=== PATIENT | female | born 1945 | race Caucasian/White ===

== ENCOUNTER 2022-01-12 14:05 | Inpatient (IN) | payer MEDICARE, BC ==
[~2022-01-12] VITALS: Ht 149.9 cm; Wt 57.6 kg
--- NOTE | 2022-01-12 14:05 | NUR ---
Dr Thomas at the bedside for MSE.
[2022-01-12] MEDS ORDERED: CARB200T PO (14:42)
[2022-01-12] MEDS ORDERED: ATEN50TA PO (14:42)
[2022-01-12] MEDS ORDERED: TRAM50TA2 PO (14:42)
[2022-01-12] MEDS ORDERED: VERA240C2 PO (14:42)
[2022-01-12] MEDS ORDERED: LIOT5TAB11 PO (14:42)
[2022-01-12] MEDS ORDERED: LEVO88TA5 PO (14:42)
[2022-01-12] MEDS ORDERED: MELO-107 PO (14:42)
--- NOTE | 2022-01-12 15:50 | NUR ---
Pt is medically cleared By Dr Conley, placed a call to [facility], and spoke to Bill SHEIKH. ETA 1 hour.
[2022-01-12 16:47] LABS: BILIRUBIN,TOTAL 0.3 mg/dL (0.2-1.0); CREATININE 0.8 mg/dL (0.6-1.3); POTASSIUM 4.1 mmol/L (3.5-5.1); TOTAL PROTEIN, SERUM 7.6 g/dL (6.4-8.2)
--- NOTE | 2022-01-12 18:08 | NUR ---
PT WAS EVALUATED BY CRISIS WATER TREATMENT PLANT ENGINEER DEANNA. PT WAS PLACED ON 51/50 HOLD DANGER TO HERSELF. REPORT WAS GIVEN TO MHU RN. PT WAS TRANSFERED TO ROOM 145C.
[2022-01-12] MEDS ORDERED: MAG HYDROX/AL HYDROX/SIMETH 30 ML LIQUID UDC PO PRN (18:45)
[2022-01-12] MEDS ORDERED: LORAZEPAM 0.5 MG TABLET PO PRN (18:45)
[2022-01-12] MEDS ORDERED: BLOOD SUGAR DIAGNOSTIC 1 EACH STRIP VI ONE (19:00)
[2022-01-12 20:07] VITALS: BP 132/72
[2022-01-12] MEDS: TEMAZEPAM 7.5 MG CAPSULE PO PRN (20:52)
--- NOTE | 2022-01-12 22:50 | NUR ---
ADMIT NOTE: Patient is a 76-year-old female admitted on a 5150 for Danger to self after she per hold attempted to commit suicide by overdosing on Sonata sleeping pills (approx. 15) stating she wanted to kill herself so that her was able to benefit from a life-insurance policy. Patient was transferred to [facility] from [facility]. Patient admitted under the Care of Dr. Cristobal, and Dr. Loaiza. Patient is unable to ambulate however she transfers to and from wheelchair. Patient Right's Handbook Provided. Advisement served. Plan of Care initiated. Monitor for safety, Q 15 minutes. Patient requested prn for pain 10/10 on her lower back and left knee. Administered as ordered, will endorse to a.m. shift to follow up for outcome.
[2022-01-13] MEDS: LEVOTHYROXINE SODIUM 88 MCG TABLET PO SCH (06:39)
[2022-01-13] MEDS: TRAMADOL HCL 50 MG TABLET PO PRN ×2 (06:47→13:50)
[2022-01-13 07:11] LABS: CREATININE 0.9 mg/dL (0.6-1.3); POTASSIUM 3.6 mmol/L (3.5-5.1)
[2022-01-13 07:12] LABS: HEMATOCRIT 40.9 % (31.2-41.9); MEAN CORPUSCULAR HEMOGLOBIN 32.5 uug (24.7-32.8); MEAN CORPUSCULAR VOLUME 94.5 fL (75.5-95.3); PLATELET COUNT (AUTO) 204 K/uL (179-408)
[2022-01-13 08:04] VITALS: BP 116/71
[2022-01-13] MEDS: ATENOLOL 50 MG TABLET PO SCH (08:41)
[2022-01-13] MEDS: MELOXICAM 7.5 MG TABLET PO SCH (08:41)
[2022-01-13] MEDS: LIOTHYRONINE SODIUM 5 MCG TABLET PO SCH (08:41)
[2022-01-13] MEDS ORDERED: CARBAMAZEPINE 200 MG TABLET PO SCH (09:00)
[2022-01-13] MEDS ORDERED: VERAPAMIL SR 120 MG TABLET.SA PO SCH (09:00)
[2022-01-13 16:02] VITALS: BP 157/72
[2022-01-13] MEDS: VERAPAMIL SR 120 MG TABLET.SA PO SCH (17:24)
[2022-01-13] MEDS: HYDROCODONE/APAP 5-325MG TABLET PO PRN (17:48)
--- NOTE | 2022-01-13 17:48 | NUR ---
GPS: Nursing Notes: Destructive Behavior To Self: Patient is awake and responding to her name, isolative and withdrawn in her room, no interactions with her peers, low energy level, depressed mood and anxious affect, stated "I am feeling better because my friend are calling me and they are going to help me financially..", encouraged to participate in therapeutic groups, but continue to be isolative, able to transfer from the w/c to the bed without assistance, unable to formulate a viable plan for self care, continue to monitor for safety, continue with treatment plan.
[2022-01-13] MEDS ORDERED: CARBAMAZEPINE XR 200 MG TAB.SR.12H PO SCH (21:00)
[2022-01-13] MEDS: ATORVASTATIN 20 MG TABLET PO SCH (21:17)
[2022-01-13] MEDS: CARBAMAZEPINE XR 100 MG TAB.SR.12H PO SCH (21:17)
[2022-01-13] MEDS: ACETAMINOPHEN 325 MG TABLET PO PRN (21:18)
[2022-01-13] MEDS: OLANZAPINE 2.5 MG TABLET PO SCH (21:18)
[2022-01-13] MEDS: TEMAZEPAM 7.5 MG CAPSULE PO PRN (21:18)
[2022-01-13 22:07] VITALS: BP 130/84
--- NOTE | 2022-01-14 05:48 | NUR ---
Received patient in a wheelchair in the marie. The patient is able to engage in a meaningful conversation with this policy writer typist and did make a contract for safety at that time. Later on, the patient requested a sleeping pill stating " I have insomnia". The patient continues to active SI . Total sleep hours are 4.00, on and off. Safety Stratiges are in place and frequent rounding done. The patient seems hopeful that her friends will help her upon discharge and supply support when needed.
[2022-01-14] MEDS: HYDROCODONE/APAP 5-325MG TABLET PO PRN ×3 (06:19→20:50)
[2022-01-14] MEDS: LEVOTHYROXINE SODIUM 88 MCG TABLET PO SCH (06:19)
[2022-01-14 07:30] VITALS: BP 124/56
[2022-01-14] MEDS: ATENOLOL 50 MG TABLET PO SCH (08:35)
[2022-01-14] MEDS: CARBAMAZEPINE XR 100 MG TAB.SR.12H PO SCH ×2 (08:35→20:49)
[2022-01-14] MEDS: MELOXICAM 7.5 MG TABLET PO SCH (08:35)
[2022-01-14] MEDS: LIOTHYRONINE SODIUM 5 MCG TABLET PO SCH (08:35)
[2022-01-14] MEDS: ENSURE ENLIVE (VAN) 240 ML LIQUID PO SCH (11:41)
[2022-01-14] MEDS: VERAPAMIL SR 120 MG TABLET.SA PO SCH (13:00)
--- NOTE | 2022-01-14 13:25 | NUR ---
GPS: Nursing Notes: Destructive Behavior To Self: Patient is awake and responding to her name, needs a lot of prompting to participate in therapeutic groups, in and out of group therapy, compliant with her medications, cooperative with nursing care, low energy level, depressed mood and anxious affect, A/Ox4, showered today, moving around on w/c, stated that her friends are going to help her and self financially, brighter affect, continue to monitor for safety, continue with treatment plan.
--- NOTE | 2022-01-14 14:04 | NUR ---
GPS: FILED AND FAXED 14 DAY HOLD [facility] TODAY FOR DANGER TO SELF AND GRAVE DISABILITY AND FAXED RECEIVED BY COURT. PT GIVEN A COPY.
[2022-01-14 15:28] VITALS: BP 127/54
--- NOTE | 2022-01-14 15:49 | NUR ---
MIROSLAVA Initial Discharge Note: Pt currently resides at [place] [phone] ([phone]). MIROSLAVA will continues to work with pt and MD to ensure a safe and proper discharge plan for the pt.
[2022-01-14 20:14] VITALS: BP 132/56
--- NOTE | 2022-01-14 20:30 | NUR ---
RECEIVED PATIENT IN HER ROOM SITTING IN HER BED. SHE IS NOTED A/O X 3 ABLE TO VERBALIZED HER FEELINGS. SHE IS WITHDRAWN AND ISOLATIVE. PATIENT ADMITS THAT SHE WANTED TO KILL HERSELF BECAUSE SHE DID NOT HAVE ENOUGH MONEY TO CONTINUE PAYING FOR NURSING HOMES FOR BOTH HER AND HER . BUT SINCE HER FRIEND CAME TO VISIT HER SHE IS NO LONGER SUICIDAL. PATIENT STATED, "MY FRIEND CAME TO VISIT ME TODAY AND SHE TOLD ME THAT SHE IS VERY RICH AND SHE IS WILLING TO PAY FOR MY CARE". PATIENT IS ABLE TO TRANSFER HERSELF WITH THE HELP OF A WHEELCHAIR. SHE REQUIRES SOME ASSISTANCE WITH ADLs. SHE IS REASSURED FOR HER SAFETY. SAFETY AND FALL PRECAUTIONS ARE IN PLACE. PATIENT'S V/S ARE STABLE, SHE IS IN NO DISTRESS. SHE WAS GIVEN PO FLUIDS AND SNACKS. WILL CONTINUE TO MONITOR.
[2022-01-14] MEDS: OLANZAPINE 2.5 MG TABLET PO SCH (20:49)
[2022-01-14] MEDS: ATORVASTATIN 20 MG TABLET PO SCH (20:49)
[2022-01-14] MEDS: TEMAZEPAM 7.5 MG CAPSULE PO PRN (21:59)
[2022-01-14] MEDS: MAGNESIUM HYDROXIDE 30 ML LIQUID UDC PO PRN (21:59)
[2022-01-15] MEDS: HYDROCODONE/APAP 5-325MG TABLET PO PRN ×2 (05:13→21:49)
[2022-01-15] MEDS: LEVOTHYROXINE SODIUM 88 MCG TABLET PO SCH (06:02)
[2022-01-15] MEDS: LIOTHYRONINE SODIUM 5 MCG TABLET PO SCH (06:03)
[2022-01-15 07:30] VITALS: BP 131/75
[2022-01-15] MEDS: ATENOLOL 50 MG TABLET PO SCH (09:10)
[2022-01-15] MEDS: MELOXICAM 7.5 MG TABLET PO SCH (09:11)
[2022-01-15] MEDS: ENSURE ENLIVE (VAN) 240 ML LIQUID PO SCH (09:11)
[2022-01-15] MEDS: CARBAMAZEPINE XR 100 MG TAB.SR.12H PO SCH ×2 (09:11→20:37)
--- NOTE | 2022-01-15 09:36 | NUR ---
Firearms Report: Drive Thru Order Taker completed and submitted a [employer] firearms report for 5150 a danger to self. A copy of report has been placed in patient chart.
--- NOTE | 2022-01-15 13:50 | NUR ---
GPS: CONSTRUCTION ENGINEERING MANAGER APPROACHED CORPORATE LEGAL SECRETARY THAT PT WAS ON THE FLOOR AT THE ACTIVITY ROOM. CORPORATE LEGAL SECRETARY WAS WITH BLISTER PACK OPERATOR ASSISTING WITH PT ADL'S WHO IS GOING TO BE DISCHARGE WHILE AMBULANCE TRANSPORTATION PERSONNEL ARE WAITING. PER PT, SHE STOOD UP TO PLACE A THING ON THE COUNTER AND SHE FORGOT TO LOCK THE WHEELCHAIR AND UPON SEATING, THE WHEELCHAIR MOVED AWAY CAUSING HER TO SLID OFF. BODY CHECKED DONE WHERE PT POINTED LEFT HIP, NO BRUISE OR DISCOLORATION NOTED. PER PT, DID NOT HIT HEAD. ENCOURAGED PT TO LOCK WHEELCHAIR WHEN TRANSFERRING FROM BED TO WHEELCHAIR AND VICE VERSA. PT UNDERSTOOD TEACHING MADE AND STATED "IT'S MY FAULT I DID NOT PUT THE BRAKES ON THE WHEELCHAIR".
[2022-01-15] MEDS: VERAPAMIL SR 120 MG TABLET.SA PO SCH (14:04)
--- NOTE | 2022-01-15 14:59 | NUR ---
GPS: RECEIVED PT ON THE WHEELCHAIR, PLEASANT UPON APPROACH, ABLE TO MAKE NEEDS KNOWN. PT NOW ENJOYS GOING TO THE GROUP ACTIVITY. ALERT/ORIENTED X3. PT REQUESTED FOR HER MEDS AND KNOWS ALL OF THEM. COMPLIANT WITH CARE AND MEDS.
--- NOTE | 2022-01-15 18:50 | NUR ---
GPS: PT ON BED. DENIES ANY PAIN OR DISCOMFORT. PT ALERT/ORIENTED X3. PT EDUCATED WITH FALL PRECAUTION RISK FACTORS AND SHE REPLIED "IT WAS MY FAULT NOT PUTTING THE BRAKES ON BEFORE I STOOD UP". PT FALL INCIDENT REPORT FILED, PSYCHIATRIST AND WAX ENGRAVER AND REFINERY OPERATOR LIGHT ENDS RECOVERY MADE AWARE. WILL MONITOR PT AND FALL PRECAUTIONS APPLIED. BED ALARM ON.
[2022-01-15 20:13] VITALS: BP 136/66
--- NOTE | 2022-01-15 20:30 | NUR ---
RECEIVED PATIENT IN THE HALLWAY SITTING IN A WHEELCHAIR. SHE IS NOTED A/O X 3 CALM AND PLEASANT UPON APPROACHED, SHE IS NOTED FORGETFUL AT TIMES. PATIENT'S V/S ARE STABLE. SHE IS IN NO DISTRESS. PATIENT DENIED PAIN OR DISCOMFORT. SHE DENIED SI AND SHE IS ABLE TO VERBALLY CFS. SHE STATED TO THIS DIE MECHANIC, "MY FRIENDS ARE COMING TO VISIT ME AND ONE OF MY FRIENDS TOLD ME THAT SHE IS VERY RICH AND SHE WILL TAKE CARE ON ME AND MY , I DON'T WANT TO , I FEEL BAD, I AM SORRY". SHE IS REASSURED FOR HER SAFETY. SAFETY AND FALL PRECAUTION ARE IN PLACE, PATIENT WAS GIVEN PO FLUIDS AND SNACKS. WILL CONTINUE TO MONITOR,
[2022-01-15] MEDS: ATORVASTATIN 20 MG TABLET PO SCH (20:37)
[2022-01-15] MEDS: OLANZAPINE 2.5 MG TABLET PO SCH (20:37)
[2022-01-15] MEDS: TEMAZEPAM 7.5 MG CAPSULE PO PRN (21:48)
[2022-01-16] MEDS: LORAZEPAM 1 MG TABLET PO PRN (00:16)
[2022-01-16] MEDS: LEVOTHYROXINE SODIUM 88 MCG TABLET PO SCH (06:07)
[2022-01-16 07:30] VITALS: BP 156/69
--- NOTE | 2022-01-16 09:00 | NUR ---
Alert, oriented x 3, on the wheelchair. Fall precaution re enforced. Reports of pain. [place]ambra po given with relief. Calm and complaint with care and taking care of medication.
[2022-01-16] MEDS: CARBAMAZEPINE XR 100 MG TAB.SR.12H PO SCH ×2 (09:44→20:39)
[2022-01-16] MEDS: ATENOLOL 50 MG TABLET PO SCH (09:44)
[2022-01-16] MEDS: LIOTHYRONINE SODIUM 5 MCG TABLET PO SCH (09:44)
[2022-01-16] MEDS: MELOXICAM 7.5 MG TABLET PO SCH (09:44)
[2022-01-16] MEDS: ENSURE ENLIVE (VAN) 240 ML LIQUID PO SCH (09:45)
[2022-01-16] MEDS: HYDROCODONE/APAP 5-325MG TABLET PO PRN ×2 (09:45→16:08)
[2022-01-16] MEDS ORDERED: DIVALPROEX 125 MG TABLET.DR PO SCH (10:15)
[2022-01-16] MEDS: VERAPAMIL SR 120 MG TABLET.SA PO SCH (12:19)
--- NOTE | 2022-01-16 13:13 | NUR ---
Attending the court hearing
--- NOTE | 2022-01-16 14:54 | NUR ---
GPS: [address] [facility] HEARING DONE AND PT PARTICIPATED. PT RIGHT ADVOCATE SPOKE WITH PT. GM VIDEO DECISION REMAIN ON DTS AND GD.
--- NOTE | 2022-01-16 16:00 | NUR ---
Reports of knee pain. Lambert po given as ordered with relief.
[2022-01-16 17:20] VITALS: BP 144/77
--- NOTE | 2022-01-16 17:27 | NUR ---
Fall precaution re enforced. Free from fall or injury
--- NOTE | 2022-01-16 20:30 | NUR ---
RECEIVED PATIENT IN THE HALLWAY. SHE IS NOTED A/O X 3 CALM AND PLEASANT UPON APPROACHED. SHE DENIED SI/HI/VH/AH. SHE IS ABLE TO VERBALIZED FEELINGS. SHE IS REASSURED FOR HER SAFETY. SAFETY AND FALL PRECAUTION ARE IN PLACE. HER V/S ARE STABLE. PATIENT IN NO DISTRESS. SHE WAS GIVEN PO FLUIDS AND SNACKS. WILL CONTINUE TO MONITOR,
[2022-01-16] MEDS: OLANZAPINE 2.5 MG TABLET PO SCH (20:38)
[2022-01-16] MEDS: ATORVASTATIN 20 MG TABLET PO SCH (20:39)
[2022-01-16 21:10] VITALS: BP 121/70
[2022-01-16] MEDS: TEMAZEPAM 7.5 MG CAPSULE PO PRN (21:35)
[2022-01-17] MEDS: HYDROCODONE/APAP 5-325MG TABLET PO PRN ×3 (03:46→22:32)
[2022-01-17] MEDS: LEVOTHYROXINE SODIUM 88 MCG TABLET PO SCH (06:25)
[2022-01-17 07:30] VITALS: BP 131/60
[2022-01-17] MEDS: ATENOLOL 50 MG TABLET PO SCH (08:25)
[2022-01-17] MEDS: CARBAMAZEPINE XR 100 MG TAB.SR.12H PO SCH ×2 (08:25→20:05)
[2022-01-17] MEDS: LIOTHYRONINE SODIUM 5 MCG TABLET PO SCH (08:25)
[2022-01-17] MEDS: MELOXICAM 7.5 MG TABLET PO SCH (08:26)
[2022-01-17] MEDS: ENSURE ENLIVE (VAN) 240 ML LIQUID PO SCH (08:26)
--- NOTE | 2022-01-17 11:16 | NUR ---
SW Family Contact: pt stated she does not have any family contact. Pt stated she has a in a nursing facility and no children.
[2022-01-17 12:41] VITALS: BP 122/66
[2022-01-17] MEDS: VERAPAMIL SR 120 MG TABLET.SA PO SCH (12:41)
[2022-01-17 17:31] VITALS: BP 124/72
[2022-01-17] MEDS: ATORVASTATIN 20 MG TABLET PO SCH (20:05)
[2022-01-17] MEDS: LORAZEPAM 1 MG TABLET PO PRN (20:05)
[2022-01-17] MEDS: OLANZAPINE 2.5 MG TABLET PO SCH (20:05)
[2022-01-17 20:30] VITALS: BP 141/76
[2022-01-17] MEDS: TEMAZEPAM 7.5 MG CAPSULE PO PRN (21:27)
--- NOTE | 2022-01-18 05:36 | NUR ---
Patient slept 5.15 hours. PRN medication for pain and sleep were requested by the patient. The patient denies active feelings of SI at this time and made a contract for safety with this speech writer. Safety Stratiges are in place to ensure a safe environment. The patient is able and willing to engage in meaningful conversation. Continuing to monitor for pain.
[2022-01-18] MEDS: LEVOTHYROXINE SODIUM 88 MCG TABLET PO SCH (06:24)
[2022-01-18 07:30] VITALS: BP 134/65
[2022-01-18] MEDS: ATENOLOL 50 MG TABLET PO SCH (09:08)
[2022-01-18] MEDS: LIOTHYRONINE SODIUM 5 MCG TABLET PO SCH (09:09)
[2022-01-18] MEDS: CARBAMAZEPINE XR 100 MG TAB.SR.12H PO SCH ×2 (09:10→20:40)
[2022-01-18] MEDS: ENSURE ENLIVE (VAN) 240 ML LIQUID PO SCH (09:10)
[2022-01-18] MEDS: HYDROCODONE/APAP 5-325MG TABLET PO PRN ×2 (09:13→16:59)
[2022-01-18] MEDS: MELOXICAM 7.5 MG TABLET PO SCH (09:43)
--- NOTE | 2022-01-18 10:44 | NUR ---
GPS: PT RECEIVED TODAY ON WHEELCHAIR. PLEASANT UPON APPROACH. PT ABLE TO MAKE NEEDS KNOWN. DENIES SI/HI. NOW, PT GOES TO THE ACTIVITY ROOM FOR GROUP ACTIVITIES. COMPLIANT WITH CARE AND MEDS. SEEN BY PSYCHIATRIST TODAY.
[2022-01-18] MEDS: VERAPAMIL SR 120 MG TABLET.SA PO SCH (12:52)
[2022-01-18] MEDS: ACETAMINOPHEN 325 MG TABLET PO PRN (14:28)
[2022-01-18 16:00] VITALS: BP 153/64
[2022-01-18 20:00] VITALS: BP 156/73
--- NOTE | 2022-01-18 20:30 | NUR ---
RECEIVED PATIENT IN THE DAYROOM. SHE IS NOTED A/O X 3 CALM AND PLEASANT UPON APPROACHED. SHE IS ABLE TO VERBALIZED FEELINGS. SHE DENIED SI/HI/VH/AH, SHE VERBALLY CFS. PATIENT'S V/S ARE STABLE. SAFETY AND FALL PRECAUTION ARE IN PLACE. SHE IS REASSURED FOR HER SAFETY. PO FLUIDS AND SNACKS WERE GIVEN TO PATIENT. WILL CONTINUE TO MONITOR.
[2022-01-18] MEDS: ATORVASTATIN 20 MG TABLET PO SCH (20:40)
[2022-01-18] MEDS: OLANZAPINE 2.5 MG TABLET PO SCH (20:40)
[2022-01-18] MEDS: TEMAZEPAM 7.5 MG CAPSULE PO PRN (23:01)
[2022-01-19] MEDS: LORAZEPAM 1 MG TABLET PO PRN (00:38)
[2022-01-19] MEDS: HYDROCODONE/APAP 5-325MG TABLET PO PRN ×3 (00:38→17:58)
[2022-01-19] MEDS: LEVOTHYROXINE SODIUM 88 MCG TABLET PO SCH (06:34)
[2022-01-19 08:13] VITALS: BP 123/54
[2022-01-19] MEDS: ATENOLOL 50 MG TABLET PO SCH (09:13)
[2022-01-19] MEDS: LIOTHYRONINE SODIUM 5 MCG TABLET PO SCH (09:13)
[2022-01-19] MEDS: MELOXICAM 7.5 MG TABLET PO SCH (09:17)
[2022-01-19] MEDS: ENSURE ENLIVE (VAN) 240 ML LIQUID PO SCH (09:18)
[2022-01-19] MEDS: CARBAMAZEPINE XR 100 MG TAB.SR.12H PO SCH ×2 (09:18→20:52)
[2022-01-19] MEDS: VERAPAMIL SR 120 MG TABLET.SA PO SCH (13:00)
[2022-01-19 16:23] VITALS: BP 147/55
--- NOTE | 2022-01-19 18:20 | NUR ---
GPS: Nursing note: Pt is calm and cooperative throughout shift. No events occurred during shift. [id number] pain medication for management.Will endorse.
[2022-01-19 20:10] VITALS: BP 149/70
--- NOTE | 2022-01-19 20:30 | NUR ---
RECEIVED PATIENT IN THE HALLWAY SITTING IN A WHEELCHAIR. SHE IS NOTED A/O X 3 CALM AND PLEASANT UPON APPROACHED. SHE IS ABLE TO VERBALIZED FEELINGS. SHE DENIED SI/HI/VH/AH, SHE VERBALLY CFS. PATIENT'S V/S ARE STABLE. SAFETY AND FALL PRECAUTION ARE IN PLACE. SHE IS REASSURED FOR HER SAFETY. PO FLUIDS AND SNACKS WERE GIVEN TO PATIENT. WILL CONTINUE TO MONITOR.
[2022-01-19] MEDS: OLANZAPINE 2.5 MG TABLET PO SCH (20:52)
[2022-01-19] MEDS: ATORVASTATIN 20 MG TABLET PO SCH (20:52)
[2022-01-19] MEDS: TEMAZEPAM 7.5 MG CAPSULE PO PRN (22:17)
[2022-01-20] MEDS: LORAZEPAM 1 MG TABLET PO PRN ×2 (02:16→22:42)
[2022-01-20] MEDS: LEVOTHYROXINE SODIUM 88 MCG TABLET PO SCH (06:16)
[2022-01-20] MEDS: ATENOLOL 50 MG TABLET PO SCH (08:36)
[2022-01-20] MEDS: MELOXICAM 7.5 MG TABLET PO SCH (08:36)
[2022-01-20] MEDS: CARBAMAZEPINE XR 100 MG TAB.SR.12H PO SCH ×2 (08:36→20:25)
[2022-01-20] MEDS: LIOTHYRONINE SODIUM 5 MCG TABLET PO SCH (08:37)
[2022-01-20] MEDS: ENSURE ENLIVE (VAN) 240 ML LIQUID PO SCH (08:39)
[2022-01-20 10:14] VITALS: BP 147/71
[2022-01-20] MEDS: VERAPAMIL SR 120 MG TABLET.SA PO SCH (12:59)
[2022-01-20] MEDS: HYDROCODONE/APAP 5-325MG TABLET PO PRN (13:20)
--- NOTE | 2022-01-20 15:35 | NUR ---
GPS: Nursing Notes: Destructive Behavior To Self: Patient is awake and responding to her name, cooperative with nursing care, compliant with her medications, participating in therapeutic groups, ambulatory with fww, depressed mood, brighter affect, needs minimal assistance with ADL's, following staff directions, unable to formulate a viable plan for self care, but stated that her friends are going to help her, denies SI/HI, continue to monitor for safety, continue with treatment plan.
[2022-01-20 16:49] VITALS: BP 154/73
[2022-01-20 20:06] VITALS: BP 142/74
[2022-01-20] MEDS: OLANZAPINE 2.5 MG TABLET PO SCH (20:23)
[2022-01-20] MEDS: ATORVASTATIN 20 MG TABLET PO SCH (20:25)
[2022-01-20] MEDS: MAGNESIUM HYDROXIDE 30 ML LIQUID UDC PO PRN (20:47)
[2022-01-20] MEDS: TEMAZEPAM 7.5 MG CAPSULE PO PRN (21:11)
[2022-01-21] MEDS: LEVOTHYROXINE SODIUM 88 MCG TABLET PO SCH (06:15)
--- NOTE | 2022-01-21 06:53 | NUR ---
GPS NOTES: Received patient awake, alert, ambulatory with FWW. A&Ox2. Able to make needs known. Compliant with medications. Patient pleasant and interacting appropriately. Patient given Restoril Prn but she states its ineffective, Ativan Prn given. Patient slept 7.0 during shift. Closely monitoring observed
[2022-01-21 07:30] VITALS: BP 138/47
[2022-01-21] MEDS: LIOTHYRONINE SODIUM 5 MCG TABLET PO SCH (08:37)
[2022-01-21] MEDS: MELOXICAM 7.5 MG TABLET PO SCH (08:37)
[2022-01-21] MEDS: ENSURE ENLIVE (VAN) 240 ML LIQUID PO SCH (08:38)
[2022-01-21] MEDS: CARBAMAZEPINE XR 100 MG TAB.SR.12H PO SCH ×2 (08:38→20:18)
[2022-01-21] MEDS: ATENOLOL 50 MG TABLET PO SCH (08:38)
[2022-01-21] MEDS: VERAPAMIL SR 120 MG TABLET.SA PO SCH (13:39)
[2022-01-21] MEDS: HYDROCODONE/APAP 5-325MG TABLET PO PRN (13:40)
--- NOTE | 2022-01-21 14:43 | NUR ---
GPS: Nursing Notes: Destructive Behavior To Self: Patient is awake and responding to her name, cooperative with nursing care, compliant with her medications, minimal participation in therapeutic groups, getting stronger - ambulatory with fww, stated that she is here because of financial distress, but her friends are going to help her, following staff directions, showered today, needs minimal assistance with ADL's, unable to formulate a viable plan for self care, continue to monitor for safety, continue with treatment plan.
[2022-01-21 15:48] VITALS: BP 131/58
[2022-01-21 20:09] VITALS: BP 145/80
[2022-01-21] MEDS: ATORVASTATIN 20 MG TABLET PO SCH (20:17)
[2022-01-21] MEDS: OLANZAPINE 2.5 MG TABLET PO SCH (20:17)
[2022-01-21] MEDS: LORAZEPAM 1 MG TABLET PO PRN (20:17)
[2022-01-21] MEDS: TEMAZEPAM 7.5 MG CAPSULE PO PRN (22:02)
[2022-01-22] MEDS: LEVOTHYROXINE SODIUM 88 MCG TABLET PO SCH (06:08)
[2022-01-22] MEDS: HYDROCODONE/APAP 5-325MG TABLET PO PRN ×2 (06:53→12:57)
[2022-01-22 07:30] VITALS: BP 142/77
[2022-01-22] MEDS: LIOTHYRONINE SODIUM 5 MCG TABLET PO SCH (08:44)
[2022-01-22] MEDS: ATENOLOL 50 MG TABLET PO SCH (08:45)
[2022-01-22] MEDS: ENSURE ENLIVE (VAN) 240 ML LIQUID PO SCH (08:46)
[2022-01-22] MEDS: MELOXICAM 7.5 MG TABLET PO SCH (08:46)
[2022-01-22] MEDS: CARBAMAZEPINE XR 100 MG TAB.SR.12H PO SCH (08:46)
--- NOTE | 2022-01-22 10:00 | NUR ---
MIROSLAVA Discharge Note: Pt will be discharged to [facility] located at [id number] [place] [phone] ([phone]) via Ambulance transportation at 1PM. MIROSLAVA spoke with admin coordinator, Denise at the facility who states they are ready to accept the patient today. Pt is aware and agreeable with discharge plans. Pts family member, Josh ([phone]) is aware and agreeable with the discharge plan. Pt is alert and oriented x4, is unable to plan for self-care at this time; however, is willing to accept care at SNF. Pt denies any suicidal or homicidal ideation. Pt will follow-up at the facility with Psychiatrist, Dr. Cristobal and Delinquent Tax Collection Assistant, Dr. Moeller. Pt presents with calm mood and congruent affect. PHARMACY: [facility] ([phone]) [address] [place] [address].
--- NOTE | 2022-01-22 11:00 | NUR ---
Received patient awake in her room. A/O X 3 to person, place, environment. Pt. is pleasant, sociable, cooperative with care, and compliant with medications. Pt. ambulates with walker and wheelchair. Self care. Pt. denies SI. Pt. is encourage to verbalize concerns. Fall and safety precautions implemented.
[2022-01-22 12:36] VITALS: BP 149/75
[2022-01-22] MEDS: VERAPAMIL SR 120 MG TABLET.SA PO SCH (12:36)
--- NOTE | 2022-01-22 14:15 | NUR ---
Received orders to discharge this patient to [facility] by [facility]. Report was given to Jaleel ELKINS. Patient was agreeable to discharge plans and signed all documents. All belongings, valuables, and medications were given to the patient. Patient left the unit at 14:08. Emotional support provided. Fall and safety precautions implemented.
== END 2022-01-22 14:08 | DRG 881 ==
LOC: ER 14:05 → EDBD 14:05 → GPS 18:01
PROVIDERS: ADMIT Nurse Practitioner Psychiatric/Mental Health; ATTEND Nurse Practitioner Acute Care
DX: F32.9 Major depressive disorder, single episode, unspecified (principal); E87.1 Hypo-osmolality and hyponatremia; G50.0 Trigeminal neuralgia; T42.7 Poisoning by, adverse effect of and underdosing of unspecified antiepileptic and sedative-hypnotic drugs; S00.83XA Contusion of other part of head, initial encounter; X58.XXXA Exposure to other specified factors, initial encounter; Y92.89 Other specified places as the place of occurrence of the external cause; G47.00 Insomnia, unspecified; M19.90 Unspecified osteoarthritis, unspecified site; Z59.9 Problem related to housing and economic circumstances, unspecified; I10 Essential (primary) hypertension; E03.9 Hypothyroidism, unspecified; E78.5 Hyperlipidemia, unspecified; F41.9 Anxiety disorder, unspecified; Z90.12 Acquired absence of left breast and nipple
CPT/HCPCS: 36415; 71045; 84443; 85025; 93005; 97161; A4663; A6209